=== PATIENT | male | born 1970 | race Caucasian/White ===

== ENCOUNTER 2021-05-09 18:39 | Inpatient (IN) ==
[2021-05-09] MEDS ORDERED: PANTOprazole 80 MG in DEXTROSE 5% 100 ML IV ONE (19:28)
[2021-05-09] MEDS ORDERED: PANTOPRAZOLE BOLUS/DRIP 1 EA IV STA (19:28)
[2021-05-09] MEDS ORDERED: ONDANSETRON INJ 2 MG/ML 2 ML VIAL IV STA ×2 (19:40→21:23)
[2021-05-09] MEDS ORDERED: MoRPHine SULFATE 4 MG/ML 1 ML CARP\\VIAL IV STA ×2 (19:40→21:23)
--- NOTE | 2021-05-09 19:40 | Emergency Department Note ---
Impression & Plan Abdominal pain, Acute upper gastrointestinal bleeding, Anemia ED Provider Note NAME: ARNULFO ABREU AGE: 51 SEX: M : 1970 ARRIVES VIA: Walk-In INFORMANT: Patient ED PROVIDER(S): Elías Mdoi DO CHIEF COMPLAINT: abdominal pain HPI: Patient is a 51-year-old male with a past medical history of gastric ulcers who presents the ER for abdominal pain which has been present for the past 2 weeks. He admits to nausea but no vomiting. Denies any dysuria, urgency, or frequency. Black stools have been present with dark blood for the past week. Admits to weakness. No lightheadedness. No other exacerbating or remitting factors. Denies any blood thinners. Pain is an 8 out of 10 and constant. No chest pain or shortness of breath. Patient denies any NSAIDs or steroid use. Denies any history of varices or alcohol abuse. ROS: See above HPI for pertinent positives & negatives. A total of 10 systems reviewed and were otherwise negative. PAST MEDICAL HISTORY:See Below PAST SURGICAL HISTORY:See Below FAMILY HISTORY:See Below SOCIAL HISTORY:See Below HOME MEDICATIONS:See Below ALLERGIES:See Below VITALS:See Below PHYSICAL EXAMINATION: GENERAL: Sitting up in bed, alert, well appearing, well nourished, no distress, non-toxic EYE EXAM: normal conjunctiva. PERRL and EOM's grossly intact. OROPHARYNX: no exudate, no erythema, lips, buccal mucosa, and tongue normal and mucous membranes are moist NECK: supple, no nuchal rigidity, no adenopathy, non-tender LUNGS: Clear to auscultation. Normal chest wall mechanics HEART: no murmurs, S1 normal and S2 normal ABDOMEN: abdomen soft, non-tender, normo-active bowel sounds, no masses, no rebound or guarding. RECTAL: Dark stool heme positive UPPER EXTREMITIES: upper extremities are grossly normal. LOWER EXTREMITIES: No pitting edema. NEURO EXAM: Normal sensorium, cranial nerves II-XII grossly intact, normal speech, no gross weakness of arms, no gross weakness of legs. MEDICAL DECISION MAKING: Patient is a 51-year-old male who presents the ER for dark tarry stools which is been present for the past week. Rectally was heme positive black stool. Labs show no significant leukocytosis. Mild anemia 11.4 down from a previous of 15 although that was back in early 1999. Patient does not have a PCP. BMP with slightly elevated chloride. LFTs bilirubin was unremarkable. Lipase was normal. UA was clean. CT abdomen pelvis was unremarkable. Is placed on Protonix drip and bolus. He was given a GI cocktail. He was given IV narcotics. He was updated bedside and discussed with hospitalist for further evaluation. Triage Nursing notes reviewed. Limited review of prior medical records performed Vital Signs: reviewed and remarkable for HTN Differential diagnosis: Differential diagnoses includes but is not limited to gastritis, peptic ulcer disease, GERD, gallbladder disease, pancreatitis, small bowel obstruction, acute coronary syndrome, pericarditis, ischemic bowel, irritable bowel disease, irritable bowel syndrome, appendicitis, diverticulitis, malignancy, hernia, urinary tract infection, torsion, [/ectopic (if female)], perforation, trauma, infectious. ER treatment provided: See below Diagnostics interpreted by me: ECG: none Cardiac Monitoring: An order was placed for continuous cardiac monitoring. The monitor shows a rate of 72 with sinus rhythm. Laboratory studies: As stated above and show below. Imaging studies: CT abdomen pelvis showed no acute pathology per stat read Consultation(s): Discussed with Elver Reagan for further evaluation Procedures: none Critical Care: None Past Med/Surg History Social History Smoking Status: Current every day smoker Preferred Language: Swazi Feels Safe at Home: Yes Allergies Allergies Allergy/AdvReac Type Severity Reaction Status Date / Time aspirin Allergy Intermediate Throat Unverified 05/09/21 20:14 Swells amoxicillin AdvReac Intermediate Severe GI Unverified 05/09/21 20:14 Upset and Stomach Cramps azithromycin AdvReac Intermediate Severe GI Unverified 05/09/21 20:20 Upset Penicillins AdvReac Intermediate Severe GI Unverified 05/09/21 20:14 Upset and Stomach Cramps Home Meds Home Medications Medication Instructions Recorded Confirmed oxycodone-acetaminophen 1 tab PO Q6H PRN 05/09/21 05/09/21 Results & Data (ED) Vital Signs Vital Signs - 24 hr 05/09/21 18:50 05/09/21 20:00 05/09/21 20:29 Temperature 36.9 C 37.1 C Temperature Source Temporal Artery Scan Oral Pulse Rate 87 81 Pulse Rate [Apical] 77 Pulse Rate from SpO2 Sensor Pulse Rhythm [Apical] Regular Pulse Strength [Apical] Normal Respiratory Rate 18 16 15 Respiratory Effort / Characteristics Non-Labored Respiratory Depth Normal Blood Pressure 150/95 H 138/85 Blood Pressure [Left Arm] 134/75 Blood Pressure Mean 113 102 Blood Pressure Mean [Left Arm] 94 Blood Pressure Position Sitting Blood Pressure Position [Left Arm] Sitting Pulse Oximetry 98 99 Oxygen Delivery Method Room Air Room Air Sepsis Recent Fever Within 48 Hours No Sepsis New/Unexplained Change in Mental Status No Sepsis Action Taken by Nursing No Action Required 05/09/21 21:07 05/09/21 21:10 05/09/21 21:20 Temperature Temperature Source Pulse Rate 78 82 69 Pulse Rate [Apical] Pulse Rate from SpO2 Sensor 80 84 69 Pulse Rhythm [Apical] Pulse Strength [Apical] Respiratory Rate 17 18 14 Respiratory Effort / Characteristics Respiratory Depth Blood Pressure 134/75 Blood Pressure [Left Arm] Blood Pressure Mean 94 Blood Pressure Mean [Left Arm] Blood Pressure Position Blood Pressure Position [Left Arm] Pulse Oximetry 97 98 98 Oxygen Delivery Method Sepsis Recent Fever Within 48 Hours Sepsis New/Unexplained Change in Mental Status Sepsis Action Taken by Nursing 05/09/21 21:30 05/09/21 21:40 05/09/21 21:41 Temperature Temperature Source Pulse Rate 74 66 68 Pulse Rate [Apical] Pulse Rate from SpO2 Sensor 73 66 68 Pulse Rhythm [Apical] Pulse Strength [Apical] Respiratory Rate 18 19 16 Respiratory Effort / Characteristics Respiratory Depth Blood Pressure 142/83 H Blood Pressure [Left Arm] Blood Pressure Mean 102 Blood Pressure Mean [Left Arm] Blood Pressure Position Blood Pressure Position [Left Arm] Pulse Oximetry 96 97 97 Oxygen Delivery Method Sepsis Recent Fever Within 48 Hours Sepsis New/Unexplained Change in Mental Status Sepsis Action Taken by Nursing 05/09/21 21:50 05/09/21 22:00 Temperature Temperature Source Pulse Rate 69 70 Pulse Rate [Apical] Pulse Rate from SpO2 Sensor 71 70 Pulse Rhythm [Apical] Pulse Strength [Apical] Respiratory Rate 16 13 Respiratory Effort / Characteristics Respiratory Depth Blood Pressure Blood Pressure [Left Arm] Blood Pressure Mean Blood Pressure Mean [Left Arm] Blood Pressure Position Blood Pressure Position [Left Arm] Pulse Oximetry 96 95 Oxygen Delivery Method Sepsis Recent Fever Within 48 Hours Sepsis New/Unexplained Change in Mental Status Sepsis Action Taken by Nursing Laboratory Data Result diagrams: 05/09/21 19:36 05/09/21 19:36 Lab Results 05/09/21 05/09/21 05/09/21 Range/Units 19:36 19:36 19:36 WBC 10.98 H (4.8-10.8) K/uL RBC 3.72 L (4.7-6.1) M/uL Hgb 11.4 L (14.0-18.0) g/dL Hct 32.4 L (42-52) % MCV 87.1 (80-100) fL MCH 30.6 (25-34) pg MCHC 35.2 (32-36) g/dL RDW Std Deviation 41.5 (36.4-46.3) fL RDW Coeff of Perri 13.1 (11.5-14.5) % Plt Count 237 (130-400) K/uL MPV 10.2 (7.4-10.4) fL Immature Gran % (Auto) 1.5 % Neut % (Auto) 60.7 % Lymph % (Auto) 28.7 % [place] % (Auto) 4.6 % Eos % (Auto) 3.7 % Baso % (Auto) 0.8 % Neut # (Auto) 6.66 H (1.4-6.5) K/uL Lymph # (Auto) 3.15 (1.2-3.4) K/uL [place] # (Auto) 0.50 (0.11-0.59) K/uL Eos # (Auto) 0.41 (0-0.5) K/uL Baso # (Auto) 0.09 (0-0.2) K/uL Immature Gran # (Auto) 0.17 H (0.00-0.02) K/uL Sodium 140 (136-145) mmol/L Potassium 4.2 (3.5-5.1) mmol/L Chloride 111 H (98-107) mmol/L Carbon Dioxide 26 (21-32) mmol/L Anion Gap 3.0 (3-11) BUN 18 (7-18) mg/dl Creatinine 0.86 (0.6-1.4) mg/dl Est Cr Clr Drug Dosing 109.2 ml/min Est GFR ( Amer) 118.0 ml/min Est GFR (Non-Af Amer) 101.8 ml/min BUN/Creatinine Ratio 20.7 H (10-20) Glucose 91 (70-99) mg/dl Calcium 8.0 L (8.5-10.1) mg/dl Total Bilirubin 0.2 (0.2-1) mg/dl AST 16 (15-37) U/L ALT 21 (12-78) U/L Alkaline Phosphatase 86 (45-117) U/L Total Protein 6.8 (6.4-8.2) gm/dl Albumin 3.0 L (3.4-5.0) gm/dl Globulin 3.8 (2.5-4.0) gm/dl Albumin/Globulin Ratio 0.8 L (0.9-2) Lipase 174 (73-393) U/L Specimen Hemolysis Urine Color Yellow Urine Appearance Clear (Clear) Urine pH 6.0 (4.5-7.5) Ur Specific [place] > 1.045 H (1.000-1.030) Urine Protein Negative (Negative) Urine Glucose (UA) Negative (Negative) Urine Ketones Negative (Negative) Urine Blood Negative (Negative) Urine Nitrite Negative (Negative) Urine Bilirubin Negative (Negative) Urine Urobilinogen Negative (Negative) Ur Leukocyte Esterase Negative (Negative) COVID-19 Eval Order SARS-CoV-2 (PCR) (Negative) 05/09/21 05/09/21 Range/Units 21:44 21:44 WBC (4.8-10.8) K/uL RBC (4.7-6.1) M/uL Hgb (14.0-18.0) g/dL Hct (42-52) % MCV (80-100) fL MCH (25-34) pg MCHC (32-36) g/dL RDW Std Deviation (36.4-46.3) fL RDW Coeff of Perri (11.5-14.5) % Plt Count (130-400) K/uL MPV (7.4-10.4) fL Immature Gran % (Auto) % Neut % (Auto) % Lymph % (Auto) % [place] % (Auto) % Eos % (Auto) % Baso % (Auto) % Neut # (Auto) (1.4-6.5) K/uL Lymph # (Auto) (1.2-3.4) K/uL [place] # (Auto) (0.11-0.59) K/uL Eos # (Auto) (0-0.5) K/uL Baso # (Auto) (0-0.2) K/uL Immature Gran # (Auto) (0.00-0.02) K/uL Sodium (136-145) mmol/L Potassium (3.5-5.1) mmol/L Chloride (98-107) mmol/L Carbon Dioxide (21-32) mmol/L Anion Gap (3-11) BUN (7-18) mg/dl Creatinine (0.6-1.4) mg/dl Est Cr Clr Drug Dosing ml/min Est GFR ( Amer) ml/min Est GFR (Non-Af Amer) ml/min BUN/Creatinine Ratio (10-20) Glucose (70-99) mg/dl Calcium (8.5-10.1) mg/dl Total Bilirubin (0.2-1) mg/dl AST (15-37) U/L ALT (12-78) U/L Alkaline Phosphatase (45-117) U/L Total Protein (6.4-8.2) gm/dl Albumin (3.4-5.0) gm/dl Globulin (2.5-4.0) gm/dl Albumin/Globulin Ratio (0.9-2) Lipase (73-393) U/L Specimen Hemolysis Urine Color Urine Appearance (Clear) Urine pH (4.5-7.5) Ur Specific [place] (1.000-1.030) Urine Protein (Negative) Urine Glucose (UA) (Negative) Urine Ketones (Negative) Urine Blood (Negative) Urine Nitrite (Negative) Urine Bilirubin (Negative) Urine Urobilinogen (Negative) Ur Leukocyte Esterase (Negative) COVID-19 Eval Order Covid19 at [facility] SARS-CoV-2 (PCR) NEGATIVE (Negative) Administered Medications Pantoprazole Sodium 40 mg/ (Dextrose) 100 mls @ 20 mls/hr IV Q5H [facility] Stop: 06/08/21 19:43 Last Admin: 05/09/21 20:28 Dose: 8 mg/hr, 20 mls/hr Documented by: [id number] Discontinued Medications Al Hydrox/Mg Hydrox/Simethicone (Gi Cocktail Ed Use) 1 dose PO ONE ONE Stop: 05/09/21 21:24 Last Admin: 05/09/21 21:48 Dose: 1 dose Documented by: [id number] Pantoprazole Sodium (Protonix Bolus/Drip) 0 mls @ 1 mls/hr IV ONE STA Stop: 05/09/21 19:29 Last Admin: 05/09/21 20:44 Dose: Not Given Documented by: [id number] Pantoprazole Sodium 80 mg/ (Dextrose) 120 mls @ 400 mls/hr IV NOW ONE Stop: 05/09/21 19:45 Last Infusion: 05/09/21 20:32 Dose: 0 mls/hr Documented by: [id number] Admin: 05/09/21 20:03 Dose: 400 mls/hr Documented by: [id number] Ioversol (Optiray 320 100ml) 95 ml IV ONCE ONE Stop: 05/09/21 21:00 Last Admin: 05/09/21 21:00 Dose: 95 ml Documented by: [id number] Morphine Sulfate (Morphine Sulfate 4 Mg/Ml 1 Ml Carp\Vial) 4 mg IV NOW STA Stop: 05/09/21 19:41 Last Admin: 05/09/21 20:37 Dose: 4 mg Documented by: [id number] Morphine Sulfate (Morphine Sulfate 4 Mg/Ml 1 Ml Carp\Vial) 4 mg IV NOW STA Stop: 05/09/21 21:24 Last Admin: 05/09/21 21:41 Dose: 4 mg Documented by: [id number] Ondansetron HCl (Ondansetron Inj 2 Mg/Ml 2 Ml Vial) 4 mg IV NOW STA Stop: 05/09/21 19:41 Last Admin: 05/09/21 20:11 Dose: 4 mg Documented by: [id number] Ondansetron HCl (Ondansetron Inj 2 Mg/Ml 2 Ml Vial) 4 mg IV NOW STA Stop: 05/09/21 21:24 Last Admin: 05/09/21 22:09 Dose: 4 mg Documented by: [id number] Discharge Plan Visit Data Chief Complaint: Abdominal Pain Stated Complaint: ABDOMINAL PAIN ED Provider: Elías Modi Discharge Problem: Abdominal pain, Acute upper gastrointestinal bleeding, Anemia Forms Stand Alone Forms: Picket Prescriptions Prescriptions: No Action oxycodone-acetaminophen 5-325 mg tablet 1 tab PO Q6H PRN (Reason: Pain) RF: 0 Discharge Problem: Abdominal pain Qualifiers: Abdominal location: unspecified location Qualified Code(s): R10.9 - Unspecified abdominal pain Anemia Qualifiers: Anemia type: unspecified type Qualified Code(s): D64.9 - Anemia, unspecified
[2021-05-09 19:57] LABS: Basophils # (auto) 0.09 K/uL (0-0.2); Basophils % (auto) 0.8 %; Eosinophils # (auto) 0.41 K/uL (0-0.5); Eosinophils % (auto) 3.7 %; Hematocrit (blood only) 32.4 % (42-52); Hemoglobin 11.4 g/dL (14.0-18.0); Immature Granulocytes # (auto) 0.17 K/uL (0.00-0.02); Immature Granulocytes % (auto) 1.5 %; Lymphocytes # (auto) 3.15 K/uL (1.2-3.4); Lymphocytes % (auto) 28.7 %; Mean Corpuscular Hemoglobin 30.6 pg (25-34); Mean Corpuscular Hgb Conc 35.2 g/dL (32-36); Mean Corpuscular Volume 87.1 fL (80-100); Mean Platelet Volume 10.2 fL (7.4-10.4); Monocytes % (auto) 4.6 %; Neutrophils # (auto) 6.66 K/uL (1.4-6.5); Neutrophils % (auto) 60.7 %; Platelet Count 237 K/uL (130-400); RDW Coefficient of Variation 13.1 % (11.5-14.5); RDW Standard Deviation 41.5 fL (36.4-46.3); Red Blood Count 3.72 M/uL (4.7-6.1); White Blood Count 10.98 K/uL (4.8-10.8)
[2021-05-09 20:27] LABS: BUN Creatinine Ratio 20.7 (10-20); Creatinine Clr Calc Pharmacy 109.2 ml/min; Est GFR (Non-African American) 101.8 ml/min; Potassium 4.2 mmol/L (3.5-5.1)
[2021-05-09 20:28] LABS: Albumin Globulin Ratio 0.8 (0.9-2); Bilirubin,Total 0.2 mg/dl (0.2-1); Globulin 3.8 gm/dl (2.5-4.0); Total Protein 6.8 gm/dl (6.4-8.2)
[2021-05-09] MEDS: PANTOprazole 40 MG in DEXTROSE 5% 100 ML IV SCH (20:28)
[2021-05-09] MEDS ORDERED: OPTIRAY 320 100ml IV ONE (20:59)
[2021-05-09] MEDS ORDERED: GI COCKTAIL ED USE PO ONE (21:23)
[2021-05-09 21:30] LABS: Appearance Urine Clear (Clear); Bilirubin Urine Negative (Negative); Blood Urine Negative (Negative); Color Urine Yellow; Glucose Urine UA Negative (Negative); Ketones Urine Negative (Negative); Leukocyte Esterase Urine Negative (Negative); Nitrite Urine Negative (Negative); Protein Urine Negative (Negative); Specific Gravity Urine > 1.045 (1.000-1.030); Urobilinogen Urine Negative (Negative)
[2021-05-10] MEDS: PANTOprazole 40 MG in DEXTROSE 5% 100 ML IV SCH ×3 (00:53→10:29)
[2021-05-10] MEDS ORDERED: ONDANSETRON INJ 2 MG/ML 2 ML VIAL IV PRN ×2 (01:38→11:21)
--- NOTE | 2021-05-10 01:41 | History & Physical Report ---
Date of Service May 10, 2021 Assessment & Plan (1) Acute upper gastrointestinal bleeding: See below Present on Admission?: Yes (2) Symptomatic anemia: Symptomatic anemia/GI bleeding- Patient reports stools are mildly tarry, but then adds that there is some red blood tingeing to it as well. Symptoms sound more related to upper GI bleed, which will be assessed by EGD, but also may require colonoscopy due to complaint of spotty bright red blood in stool Hemoglobin was 11.4 upon admission, with previous baseline in 2019 at 15.2 Mucous membranes are dry, so suspect that his hemoglobin is actually somewhere in the upper 9 to low 10 range. H&H every 6 hours NPO NSS + KCl 20 mEq at 100 mils per hour Continue Protonix drip begun in the ED Zofran 4 mg IV every 6 hours as needed Ceftriaxone 1 g IV daily Patient of note also drinks 32 to 48 ounces of Pepsi daily. He does take NSAIDs, but denies any use of NSAIDs for at least a week prior to the onset of his stool changes 2 weeks ago. Patient denies alcohol use Consult gastroenterology Dr. Whitley Present on Admission?: Yes (3) Abdominal pain: Patient did undergo CT of abdomen and pelvis with contrast, which showed no acute findings, other than pars defects at L5 Present on Admission?: Yes (4) Dental infection: The patient has recently been taking Percocet, and has recently been on clarithromycin Present on Admission?: Yes Admission and Anticipated Discharge Date Admission Date: May 10, 2021 History of Present Illness Chief Complaint: The patient presents to the emergency department with complaint of 2 weeks of epigastric abdominal pain, with initial notation of dark tarry stools that began 2 weeks ago, and more recently noted spotty areas of bright red blood in stool Primary Care Provider: NO PCP The patient is a 51-year-old male with a reported past medical history including gastric ulcers, who presents as above. He denies any recent NSAID use, but has used ibuprofen or naproxen in the past for generalized pains. He has felt lightheaded and dizzy intermittently, worsening over the past few days. He denies taking any herbal remedies. He has been taking Percocet for a recent dental infection, and had the addition of clarithromycin recently as well. He denies use of any other atao-uey-xusomnn agents. The only reason he presented to the ED tonight, was at the insistence of his significant other, whom whom he notified of his symptoms recently Allergies Allergy/AdvReac Type Severity Reaction Status Date / Time aspirin Allergy Intermediate Throat Unverified 05/09/21 20:14 Swells amoxicillin AdvReac Intermediate Severe GI Unverified 05/09/21 20:14 Upset and Stomach Cramps azithromycin AdvReac Intermediate Severe GI Unverified 05/09/21 20:20 Upset Penicillins AdvReac Intermediate Severe GI Unverified 05/09/21 20:14 Upset and Stomach Cramps Home Medications Medication Instructions Recorded Confirmed Type oxycodone-acetaminophen 1 tab PO Q6H PRN 05/09/21 05/09/21 History Past Med/Surg History Social History Smoking Status: Current some day smoker Second Hand Exposure: No; Do You Dip or Chew Tobacco: No; Hx Alcohol Use: No Hx Substance Use: No Preferred Language: Urdu Director [employer] Required: No Beliefs That Will Affect Care: None Current Living Situation: Significant Other Feels Safe at Home: Yes Safety Concerns: Feels Safe At This Time Assistive Devices: None Review of Systems Review of Systems: The patient denies chest pain, palpitations, shortness of breath, dyspnea on exertion, cough, lower extremity swelling, sore throat, fevers, chills, sweats, nausea, vomiting, diarrhea , constipation, blood in urine, dysuria, urinary frequency or urgency, memory loss, loss of consciousness, rash, abnormal bruising or bleeding, imbalance, focal or generalized weakness, numbness or tingling in arms or legs, generalized arthralgias or myalgias, back or neck pain, or night sweats. The review of systems is otherwise negative other than for that already noted above, and at least 10 systems have been reviewed. Physical Exam Physical Exam: The patient is awake, alert and oriented 3, well developed and well nourished, normocephalic and atraumatic, lying in bed and in no acute distress. HEENT--PERRL, EOMI, mucous membranes and oropharynx dry. Neck--supple. No JVD. No bruits. Thyroid normal, trachea midline, no adenopathy. Heart--normal S1 and S2. No murmurs, rubs or gallops. Lungs--clear bilaterally, no respiratory distress, no accessory muscle use. Abdomen--normal bowel sounds and soft. Mild epigastric tenderness. N ondistended. Mildly obese. Extremities--no cyanosis or clubbing. No edema. Dermatologic--normal skin turgor, normal color, no abnormal lymph nodes, no rash. Neurologic--cranial nerves II through XII grossly intact. Rheumatologic--normal range of motion. Psychiatric--normal affect. Results & Data Results & Data ([facility]) Vital Signs (Past 12 Hours) Vital Signs Temp Pulse Pulse Resp BP BP Pulse Ox 05/10/21 01:00 56 L 14 105/72 97 05/10/21 00:01 72 19 97 05/10/21 00:00 69 20 136/79 98 05/09/21 23:29 70 15 114/74 97 05/09/21 23:00 68 17 97 05/09/21 22:00 70 13 95 05/09/21 21:50 69 16 96 05/09/21 21:41 68 16 142/83 H 97 05/09/21 21:40 66 19 97 05/09/21 21:30 74 18 96 05/09/21 21:20 69 14 98 05/09/21 21:10 82 18 98 05/09/21 21:07 78 17 134/75 97 05/09/21 20:29 81 15 138/85 05/09/21 20:00 98.8 F 77 16 134/75 99 05/09/21 18:50 98.4 F 87 18 150/95 H 98 Laboratory Results Laboratory Results WBC 10.98 K/uL (4.8-10.8) H 05/09/21 19:36 RBC 3.72 M/uL (4.7-6.1) L 05/09/21 19:36 Hgb 10.9 g/dL (14.0-18.0) L 05/10/21 02:00 Hct 31.1 % (42-52) L 05/10/21 02:00 MCV 87.1 fL (80-100) 05/09/21 19:36 MCH 30.6 pg (25-34) 05/09/21 19:36 MCHC 35.2 g/dL (32-36) 05/09/21 19:36 RDW Std Deviation 41.5 fL (36.4-46.3) 05/09/21 19:36 RDW Coeff of Perri 13.1 % (11.5-14.5) 05/09/21 19:36 Plt Count 237 K/uL (130-400) 05/09/21 19:36 MPV 10.2 fL (7.4-10.4) 05/09/21 19:36 Immature Gran % (Auto) 1.5 % 05/09/21 19:36 Neut % (Auto) 60.7 % 05/09/21 19:36 Lymph % (Auto) 28.7 % 05/09/21 19:36 [place] % (Auto) 4.6 % 05/09/21 19:36 Eos % (Auto) 3.7 % 05/09/21 19:36 Baso % (Auto) 0.8 % 05/09/21 19:36 Neut # (Auto) 6.66 K/uL (1.4-6.5) H 05/09/21 19:36 Lymph # (Auto) 3.15 K/uL (1.2-3.4) 05/09/21 19:36 [place] # (Auto) 0.50 K/uL (0.11-0.59) 05/09/21 19:36 Eos # (Auto) 0.41 K/uL (0-0.5) 05/09/21 19:36 Baso # (Auto) 0.09 K/uL (0-0.2) 05/09/21 19:36 Immature Gran # (Auto) 0.17 K/uL (0.00-0.02) H 05/09/21 19:36 Sodium 140 mmol/L (136-145) 05/09/21 19:36 Potassium 4.2 mmol/L (3.5-5.1) 05/09/21 19:36 Chloride 111 mmol/L (98-107) H 05/09/21 19:36 Carbon Dioxide 26 mmol/L (21-32) 05/09/21 19:36 Anion Gap 3.0 (3-11) 05/09/21 19:36 BUN 18 mg/dl (7-18) 05/09/21 19:36 Creatinine 0.86 mg/dl (0.6-1.4) 05/09/21 19:36 Est Cr Clr Drug Dosing 109.2 ml/min 05/09/21 19:36 Est GFR ( Amer) 118.0 ml/min 05/09/21 19:36 Est GFR (Non-Af Amer) 101.8 ml/min 05/09/21 19:36 BUN/Creatinine Ratio 20.7 (10-20) H 05/09/21 19:36 Glucose 91 mg/dl (70-99) 05/09/21 19:36 Calcium 8.0 mg/dl (8.5-10.1) L 05/09/21 19:36 Total Bilirubin 0.2 mg/dl (0.2-1) 05/09/21 19:36 AST 16 U/L (15-37) 05/09/21 19:36 ALT 21 U/L (12-78) 05/09/21 19:36 Alkaline Phosphatase 86 U/L (45-117) 05/09/21 19:36 Total Protein 6.8 gm/dl (6.4-8.2) 05/09/21 19:36 Albumin 3.0 gm/dl (3.4-5.0) L 05/09/21 19:36 Globulin 3.8 gm/dl (2.5-4.0) 05/09/21 19:36 Albumin/Globulin Ratio 0.8 (0.9-2) L 05/09/21 19:36 Lipase 174 U/L (73-393) 05/09/21 19:36 Specimen Hemolysis 05/09/21 19:36 Urine Color Yellow 05/09/21 19:36 Urine Appearance Clear (Clear) 05/09/21 19:36 Urine pH 6.0 (4.5-7.5) 05/09/21 19:36 Ur Specific [place] > 1.045 (1.000-1.030) H 05/09/21 19:36 Urine Protein Negative (Negative) 05/09/21 19:36 Urine Glucose (UA) Negative (Negative) 05/09/21 19:36 Urine Ketones Negative (Negative) 05/09/21 19:36 Urine Blood Negative (Negative) 05/09/21 19:36 Urine Nitrite Negative (Negative) 05/09/21 19:36 Urine Bilirubin Negative (Negative) 05/09/21 19:36 Urine Urobilinogen Negative (Negative) 05/09/21 19:36 Ur Leukocyte Esterase Negative (Negative) 05/09/21 19:36 COVID-19 Eval Order Covid19 at [facility] 05/09/21 21:44 SARS-CoV-2 (PCR) NEGATIVE (Negative) 05/09/21 21:44 Diagnostic Findings [facility] Patient: ARNULFO ABREU (Male) : 74 Status: ER Date: 05/09/21 21:06 Room #: History: abd pain dark stools with blood noted Slices: [id number] Priors: Tech: [place], Matt @ [phone] Exams: CT ABDOMEN & PELVIS With Contrast Contrast: IV Amt: 94 Accession Numbers: [id number] Preliminary Findings Only See Final Report For Complete Findings CT ABDOMEN & PELVIS With Contrast: No inflammatory changes along the GI tract or evidence of obstruction. The appendix is normal. No free fluid. The liver, gallbladder, pancreas, spleen, adrenal glands, kidneys, and reproductive organs are unremarkable. Pars defects at L5. Radiologist: Cosme Puente MD Study ready at 21:12 and initial results transmitted at 22:12 *This report constitutes a preliminary interpretation only. Non-acute findings felt to be unrelated to the clinical presentation may not be discussed in this report. The study will be interpreted and a final report will be generated by the local Radiologist the following shift. To reach the hospital radiology department call [phone]. If a discrepancy is found between the preliminary and final interpretations of this study, please notify us via our Client Portal at [email or web address] under QA Exams.You can also fax this report with a description of the discrepancy, or include the final report, to our daytime fax number [phone].If faxing, please indicate the severity of discrepancy using one of the following categories: [ ] 1 - Agree/Informational [ ] 2 - Unlikely to Affect Management [ ] 3 - Possible Eventual Change of Management [ ] 4 - Probable Immediate Change of Management For all other patient related information, please fax us at [phone]. [id number] Code Status & VTE Plan Code Status Full code VTE Prophylaxis Plan VTE Prophylaxis will be ordered: Yes PG Care Time/CCT Total # of Minutes Spent Total Time Spent with Patient: Total time spent is greater than 50% in coordination of care (as documented) at patient's floor/unit and/or counseling patient: Coding Level of Care Code 87026 Initial Inpt Care Lvl 3 Diagnoses Acute upper gastrointestinal bleeding K92.2 Symptomatic anemia D64.9 Abdominal pain R10.9 Abdominal location: unspecified location Dental infection K04.7 (1) Abdominal pain Abdominal location: unspecified location Qualified Code(s): R10.9 - Unspecified abdominal pain
[2021-05-10] MEDS ORDERED: ACETAMINOPHEN 1,000 MG/100 ML VIAL IV PRN (01:50)
[2021-05-10] MEDS ORDERED: cefTRIAXone SODIUM 2,000 MG in DEXTROSE 5% 50 ML IV SCH (02:00)
[2021-05-10] MEDS: NSS + 20MEQ KCL 20 MEQ/1,000 ML BAG IV SCH ×2 (02:11→11:07)
[2021-05-10 02:13] LABS: Hematocrit (blood only) 31.1 % (42-52); Hemoglobin 10.9 g/dL (14.0-18.0)
[2021-05-10] MEDS ORDERED: MoRPHine SULFATE 4 MG/ML 1 ML CARP\\VIAL IV STA (04:37)
--- NOTE | 2021-05-10 07:03 | CT Scan Report ---
CT abd pelvis IV con only CLINICAL HISTORY: Abdominal pain and black stools COMPARISON STUDY: None. TECHNIQUE: The patient was scanned in a dynamic helical fashion during intravenous administration of 95 cc of Optiray 320 A dose lowering technique was utilized adhering to the principles of ALARA. CT DOSE: 736.12 mGy.cm FINDINGS: Lower chest: There are mild dependent atelectatic changes. Small hiatal hernia Liver: The contrast-enhanced liver is normal in size, contour, and attenuation. There is no intrahepa tic biliary ductal dilatation. The hepatic veins and portal veins are patent. Gallbladder: Unremarkable. Spleen: Normal in size and attenuation. Pancreas: Unremarkable. Adrenal glands: Unremarkable. Kidneys: There is symmetric renal cortical enhancement. The kidneys are normal in size without hydron ephrosis. Bowel: There are no transition zones to indicate bowel obstruction. There is no evidence of acute div erticulitis. There is no evidence of acute appendicitis. Peritoneum: There is no intraperitoneal free air or abdominal ascites. There is a tiny fat-containing umbilical hernia Vasculature: The abdominal aorta is normal in course and caliber. Adenopathy: None. Pelvic viscera: The bladder, and pelvic viscera are unremarkable. Skeletal structures: No destructive osseous lesions are seen. There is bilateral L5 spondylolysis. Th ere is a grade 1 spondylolisthesis of L5 on S1. IMPRESSION: 1. No acute intra-abdominal or pelvic findings 2. No evidence of bowel obstruction. No evidence of free air 3. No evidence of acute appendicitis. No evidence of acute diverticulitis 4. No evidence of pathologic adenopathy ACT 112: Negative or not required by law. Electronically signed by: Jose Raul Waters M.D. 05/10/2021 7:01 AM
[2021-05-10 07:46] LABS: Hematocrit (blood only) 30.4 % (42-52); Hemoglobin 10.4 g/dL (14.0-18.0)
[2021-05-10 07:59] LABS: Partial Thromboplastin Ratio 0.9; Partial Thromboplastin Time 24.2 Seconds (21.0-31.0); Prothrombin Time 10.5 Seconds (9.0-12.0)
[2021-05-10 08:02] LABS: Albumin Level 2.7 gm/dl (3.4-5.0); BUN Creatinine Ratio 17.1 (10-20); Calcium 8.2 mg/dl (8.5-10.1); Creatinine Clr Calc Pharmacy 103.6 ml/min; Est GFR (African American) 115.8 ml/min; Est GFR (Non-African American) 99.9 ml/min; Magnesium 2.1 mg/dl (1.8-2.4); Potassium 3.8 mmol/L (3.5-5.1)
[2021-05-10 08:05] LABS: Albumin Globulin Ratio 0.8 (0.9-2); Bilirubin,Total 0.2 mg/dl (0.2-1); Globulin 3.2 gm/dl (2.5-4.0); Total Protein 5.9 gm/dl (6.4-8.2)
[2021-05-10] MEDS ORDERED: FAMOTIDINE 20 MG in SYRINGE 3 ML IV ONE (09:00)
[2021-05-10] MEDS: MoRPHine SULFATE 4 MG/ML 1 ML CARP\\VIAL IV PRN (09:01)
--- NOTE | 2021-05-10 10:18 | Anesthesiology Consultation ---
Date of Service May 10, 2021 Assessment & Plan Chart Review Chart Review: Acceptable Risk for Surgery and Patient NOT seen in Pre Admission Testing Consults Requested none ASA [id number] Proposed Anesthesia Anesthesia Type: General History Surgery Operation Date: 05/10/21 12:00 Proposed Procedures p Esophagogastroduodenoscopy - Cullen G. Case, DO Height/Weight Height: 5 ft 6 in Weight: 88.7 kg Allergies Allergy/AdvReac Type Severity Reaction Status Date / Time aspirin Allergy Intermediate Throat Unverified 05/09/21 20:14 Swells amoxicillin AdvReac Intermediate Severe GI Unverified 05/09/21 20:14 Upset and Stomach Cramps azithromycin AdvReac Intermediate Severe GI Unverified 05/09/21 20:20 Upset Penicillins AdvReac Intermediate Severe GI Unverified 05/09/21 20:14 Upset and Stomach Cramps Medications Home Medications Medication Instructions Recorded Confirmed Last Taken oxycodone-acetaminophen 1 tab PO Q6H PRN 05/09/21 05/09/21 Unknown Active Medications Generic Name Dose Route Start Last Admin Trade Name Freq PRN Reason Stop Dose Admin Pantoprazole Sodium 40 mg/ 100 mls @ 20 mls/hr 05/09/21 19:44 05/10/21 05:52 Dextrose IV 06/08/21 19:43 8 mg/hr Q5H GEM 20 mls/hr Administration 8 MG/HR Acetaminophen 1,000 mg in 100 mls @ 400 mls/hr 05/10/21 01:50 05/10/21 04:21 Ofirmev IV 05/13/21 01:49 Infused Q8H PRN Infusion Pain or Fever Potassium Chloride/Sodium Chloride 20 meq in 1,000 mls @ 100 mls/hr 05/10/21 01:50 05/10/21 02:11 Normal Saline W/20 Meq Kcl IV 06/09/21 01:49 100 mls/hr .Q10H GEM Administration Ceftriaxone Sodium 2,000 mg/ 70 mls @ 100 mls/hr 05/10/21 02:00 05/10/21 04:21 Dextrose IV 05/20/21 01:59 Infused Q24H GEM Infusion Protocol Morphine Sulfate 4 mg 05/10/21 08:02 05/10/21 09:01 Morphine Sulfate 4 Mg/Ml 1 Ml Carp\Vial IV 05/24/21 08:01 4 mg Q4 PRN Administration Pain Exercise / Class Metabolic Activity II 4-5 Yardwork/Stairs/Walk up hill Past Anesthesia History No Hx of Anesthesia Complications and No Family Hx of Anesthesia Complications History of PONV No Hx of PONV and No Hx of Motion Sickness Social History Smoking Status: Current some day smoker tobacco type: cigarettes Do You Dip or Chew Tobacco: No Hx Alcohol Use: No Hx Substance Use: No substance use type: does not use Physical Exam Vital Signs Last Vital Signs Temp 36.5 C 05/10/21 07:37 Pulse 60 05/10/21 08:47 Resp 18 05/10/21 07:37 BP 114/74 05/10/21 07:37 Pulse Ox 99 05/10/21 07:37 Testing Laboratory Results 05/10/21 07:19 05/10/21 07:19 PT 10.5 Seconds (9.0-12.0) 05/10/21 07:19 INR 1.0 (0.9-1.1) 05/10/21 07:19 APTT 24.2 Seconds (21.0-31.0) 05/10/21 07:19 Urine Color Yellow 05/09/21 19:36 Urine Appearance Clear (Clear) 05/09/21 19:36 Urine pH 6.0 (4.5-7.5) 05/09/21 19:36 Ur Specific Moon > 1.045 (1.000-1.030) H 05/09/21 19:36 Urine Protein Negative (Negative) 05/09/21 19:36 Urine Glucose (UA) Negative (Negative) 05/09/21 19:36 Urine Ketones Negative (Negative) 05/09/21 19:36 Urine Nitrite Negative (Negative) 05/09/21 19:36 Ur Leukocyte Esterase Negative (Negative) 05/09/21 19:36
--- NOTE | 2021-05-10 10:34 | Gastrointestinal Consultation ---
Date of Consultation May 10, 2021 Assessment & Plan (1) Symptomatic anemia: (2) Abdominal pain: (3) Acute upper gastrointestinal bleeding: Continue Protonix gtt at 8 mg/hour NPO Reglan 10 mg IV x1 now EGD today for further evaluation History of Present Illness Reason for Consultation: Acute blood loss anemia Attending Physician: Elías Garcia DO History of Present Illness Donta Little is a 51 yo CM who presented to the ER last night with complaints of mid-epigastric abdominal pain and melena. he states that he had been experiencing sharp stabbing, 8/10 abdominal pain for the past 2 weeks. He does admit to taking NSAID's in the past few weeks due to a dental infection. He states that he has also been having black stools and occasional bright red blood. He denies ever having undergone an EGD or colonoscopy previously. He was admitted, kept NPO, received IVF and a Protonix gtt. His H/H has decreased since admission and is 10.4/30.4 at present. He denies any fevers, chills, nausea, vomiting, hematemesis, jaundice, acholic stools, dark urine, pruritus or other complaints. Allergies Allergy/AdvReac Type Severity Reaction Status Date / Time aspirin Allergy Intermediate Throat Unverified 05/09/21 20:14 Swells amoxicillin AdvReac Intermediate Severe GI Unverified 05/09/21 20:14 Upset and Stomach Cramps azithromycin AdvReac Intermediate Severe GI Unverified 05/09/21 20:20 Upset Penicillins AdvReac Intermediate Severe GI Unverified 05/09/21 20:14 Upset and Stomach Cramps Home Medications Medication Instructions Recorded Confirmed Type oxycodone-acetaminophen 1 tab PO Q6H PRN 05/09/21 05/09/21 History Patient History Social History Smoking Status: Current some day smoker Second Hand Exposure: No; Do You Dip or Chew Tobacco: No; Hx Alcohol Use: No Hx Substance Use: No Preferred Language: [place] Maintenance Custodian Required: No Beliefs That Will Affect Care: None Current Living Situation: Significant Other Feels Safe at Home: Yes Safety Concerns: Feels Safe At This Time Assistive Devices: None Review of Systems Review of Systems: All systems reviewed & are unremarkable except as noted in HPI & below Physical Exam Constitutional: WD/WN, vitals as above Eyes: + anicteric sclerae ENMT: external ear and nose normal, oropharynx normal Neck: normal visual inspection Respiratory: normal respiratory effort; no respiratory distress and no labored breathing Cardiovascular: RRR, no murmur, no edema Gastrointestinal (Abdomen): Inspection/Auscultation: abdomen normal to inspection and normal bowel sounds; abdomen not distended Percussion/Palpation: + abdomen tender (Epigastric tenderness) and abdomen soft Skin: no rashes and no pallor Psychiatric: A+Ox3, euthymic affect Results & Data ([facility]) Vital Signs (Past 12 Hours) Vital Signs Temp Pulse Pulse Resp BP BP Pulse Ox 05/10/21 08:47 60 05/10/21 07:37 36.5 C 59 L 18 114/74 99 05/10/21 05:51 109/69 05/10/21 04:54 97/63 L 05/10/21 03:24 36.4 C L 57 L 18 104/66 97 05/10/21 02:42 96 H 05/10/21 01:39 36.6 C 61 20 137/79 98 05/10/21 01:38 36.6 C 61 18 137/79 98 05/10/21 01:00 56 L 14 105/72 97 05/10/21 00:01 72 19 97 05/10/21 00:00 69 20 136/79 98 05/09/21 23:29 70 15 114/74 97 05/09/21 23:00 68 17 97 PG Care Time/CCT Total # of Minutes Spent Total Time Spent with Patient: Total time spent is greater than 50% in coordination of care (as documented) at patient's floor/unit and/or counseling patient: Coding Level of Care Code 50372 Inpt Consult Level 3 Diagnoses Symptomatic anemia D64.9 Abdominal pain R10.9 Abdominal location: unspecified location Acute upper gastrointestinal bleeding K92.2 (1) Abdominal pain Abdominal location: unspecified location Qualified Code(s): R10.9 - Unspecified abdominal pain
[2021-05-10] MEDS ORDERED: METOCLOPRAMIDE HCL INJ 5 MG/ML 2 ML VIAL IV STA (10:36)
[2021-05-10] MEDS ORDERED: fentaNYL citrate 100 MCG/2 ML VIAL ONE (11:08)
[2021-05-10] MEDS ORDERED: MIDAZOLAM HCL 1 MG/ML 2ML VIAL ONE (11:08)
[2021-05-10] MEDS ORDERED: FLUMAZENIL 0.1 MG/1 ML 10 ML VIAL IV PRN (11:21)
[2021-05-10] MEDS ORDERED: PROMETHAZINE HCL 12.5 MG in SODIUM CHLORIDE 0.9% 50 ML IV PRN (11:21)
[2021-05-10] MEDS ORDERED: fentaNYL citrate 100 MCG/2 ML VIAL IV PRN (11:21)
[2021-05-10] MEDS ORDERED: NALOXONE HCL 0.4 MG/1 ML VIAL/CARP IV PRN (11:21)
[2021-05-10] MEDS ORDERED: LABETALOL HCL IV 5 MG/ML 20ML IV PRN (11:21)
[2021-05-10] MEDS ORDERED: ATROPINE SULFATE 0.1 MG/ML 10ML SYR IV PRN (11:21)
[2021-05-10] MEDS ORDERED: ePHEDrine sulfate 50 MG/ML AMP IV PRN (11:21)
--- NOTE | 2021-05-10 11:45 | GI REPORT ---
Patient Name: Donta Little Procedure Date: 05/10/2021 10:01 AM Date of : 1970 Admit Type: Inpatient Age: 51 Gender: Male Attending MD: Cullen Whitley DO Procedure: Upper GI endoscopy Providers: Cullen Whitley DO Referring MD: Elías Garcia Indications: Acute post hemorrhagic anemia Medicines: Monitored Anesthesia Care Complications: No immediate complications. Estimated Blood Loss: Estimated blood loss: none. Procedure: Pre-Anesthesia Assessment: - Prior to the procedure, a History and Physical was performed, and patient medications and allergies were reviewed. The patient's tolerance of previous anesthesia was also reviewed. The risks and benefits of the procedure and the sedation options and risks were discussed with the patient. All questions were answered, and informed consent was obtained. Prior Anticoagulants: The patient has taken no previous anticoagulant or antiplatelet agents. ASA Grade Assessment: E - Emergency. After reviewing the risks and benefits, the patient was deemed in satisfactory condition to undergo the procedure. After obtaining informed consent, the endoscope was passed under direct vision. Throughout the procedure, the patient's blood pressure, pulse, and oxygen saturations were monitored continuously. The Endoscope was introduced through the mouth, and advanced to the second part of duodenum. The upper GI endoscopy was accomplished without difficulty. The patient tolerated the procedure well. Findings: Moderately severe esophagitis with no bleeding was found. Localized moderate inflammation characterized by erosions and erythema was found in the gastric antrum. Biopsies were taken with a cold forceps for histology. One non-bleeding superficial duodenal ulcer with no stigmata of bleeding was found in the duodenal bulb. The lesion was 5 mm in largest dimension. Impression: - Moderately severe erosive esophagitis. - Gastritis. Biopsied. - Non-bleeding duodenal ulcer with no stigmata of bleeding. Recommendation: - Return patient to [facility] for ongoing care. - Advance diet as tolerated. - Use Protonix (pantoprazole) 40 mg PO BID. - Return to GI office in 6 weeks. Cullen Whitley DO 05/10/2021 11:44:39 AM This report has been signed electronically. Note Initiated On: 05/10/2021 10:01 AM Number of Addenda: 0 I attest to the content of the Intraoperative Record and orders documented therein, exceptions below {[id number]}
[2021-05-10] MEDS ORDERED: ePHEDrine sulfate 50 MG/ML SYR ONE (12:02)
[2021-05-10] MEDS ORDERED: LIDOCAINE 2% 2 ML VIAL/AMP(20MG/ML) INFIL ONE (12:02)
[2021-05-10] MEDS ORDERED: DEXAMETHASONE SOD INJ 4 MG/ML VIAL ONE (12:02)
[2021-05-10] MEDS ORDERED: PROPOFOL IV EMULSION 10 MG/ML 20 ML VIAL IV ONE (12:02)
[2021-05-10] MEDS ORDERED: ONDANSETRON INJ 2 MG/ML 2 ML VIAL ONE (12:02)
[2021-05-10] MEDS ORDERED: SUCCINYLCHOLINE CHLORIDE 20 MG/ML 10 ML VIAL IV ONE (12:02)
--- NOTE | 2021-05-10 12:31 | Anesthesiology Progress Note ---
Date of Service May 10, 2021 Anesthesia Post Procedure Vital Signs Vital Signs: Temp Pulse Pulse Resp BP BP Pulse Ox 05/10/21 12:20 69 14 115/61 95 05/10/21 12:10 77 14 112/58 L 98 05/10/21 12:00 80 14 112/63 98 05/10/21 11:57 36.2 C L 83 15 114/61 100 05/10/21 11:52 36.8 C 56 L 20 121/73 97 05/10/21 08:47 60 05/10/21 07:37 36.5 C 59 L 18 114/74 99 05/10/21 05:51 109/69 05/10/21 04:54 97/63 L 05/10/21 03:24 36.4 C L 57 L 18 104/66 97 05/10/21 02:42 96 H 05/10/21 01:39 36.6 C 61 20 137/79 98 05/10/21 01:38 36.6 C 61 18 137/79 98 05/10/21 01:00 56 L 14 105/72 97 05/10/21 00:01 72 19 97 05/10/21 00:00 69 20 136/79 98 05/09/21 23:29 70 15 114/74 97 05/09/21 23:00 68 17 97 05/09/21 22:00 70 13 95 05/09/21 21:50 69 16 96 05/09/21 21:41 68 16 142/83 H 97 05/09/21 21:40 66 19 97 05/09/21 21:30 74 18 96 05/09/21 21:20 69 14 98 05/09/21 21:10 82 18 98 05/09/21 21:07 78 17 134/75 97 05/09/21 20:29 81 15 138/85 05/09/21 20:00 37.1 C 77 16 134/75 99 05/09/21 18:50 36.9 C 87 18 150/95 H 98 Pain Intensity Upper Abdomen: Pain Intensity: 7 Transfer of Care Handoff Completed per policy Notes Mental Status: alert / awake / arousable Patient Amnestic to Procedure: Yes Nausea / Vomiting: adequately controlled Pain: adequately controlled Airway Patency, RR, SpO2: stable & adequate BP & HR: stable & adequate Hydration State: stable & adequate Anesthetic Complications: no major complications apparent
[2021-05-10] MEDS: PANTOprazole 40 MG TAB PO SCH ×2 (12:49→20:39)
--- NOTE | 2021-05-10 16:13 | Hospitalist Progress Note ---
Date of Service May 10, 2021 Assessment & Plan (1) Acute upper gastrointestinal bleeding: Appearing to be from gastritis and duodenal ulcer. Off NSAIDs, on PPI. Advance diet, supportive care. (2) Symptomatic anemia: Fortunately bleeding seems to have stopped. Continue to follow/CBC in the a.m. Admission and Anticipated Discharge Date Admission Date: May 10, 2021 Subjective Seen in follow-up from [employer] admission, and after EGD. Patient feeling okay, still just very groggy from the scope. Physical Exam Physical Exam: No distress, no pallor or icterus, breathing unlabored. No focal neuro deficits. Results & Data Results & Data ([facility]) Vital Signs (Past 12 Hours) Vital Signs Temp Pulse Pulse Resp BP Pulse Ox 05/10/21 16:00 80 05/10/21 15:55 98.6 F 68 18 121/73 98 05/10/21 12:47 97.9 F 85 20 106/66 93 05/10/21 12:30 97.5 F L 68 14 110/61 94 05/10/21 12:20 69 14 115/61 95 05/10/21 12:10 77 14 112/58 L 98 05/10/21 12:00 80 14 112/63 98 05/10/21 11:57 97.2 F L 83 15 114/61 100 05/10/21 11:52 98.2 F 56 L 20 121/73 97 05/10/21 08:47 60 05/10/21 07:37 97.7 F 59 L 18 114/74 99 05/10/21 05:51 109/69 05/10/21 04:54 97/63 L PG Care Time/CCT Total # of Minutes Spent Total Time Spent with Patient: Total time spent is greater than 50% in coordination of care (as documented) at patient's floor/unit and/or counseling patient: Coding Level of Care Code None Diagnoses Acute upper gastrointestinal bleeding K92.2 Symptomatic anemia D64.9
[2021-05-11 06:47] LABS: Basophils # (auto) 0.02 K/uL (0-0.2); Basophils % (auto) 0.1 %; Eosinophils # (auto) 0.01 K/uL (0-0.5); Eosinophils % (auto) 0.1 %; Hematocrit (blood only) 27.5 % (42-52); Hemoglobin 9.6 g/dL (14.0-18.0); Immature Granulocytes # (auto) 0.12 K/uL (0.00-0.02); Immature Granulocytes % (auto) 0.8 %; Lymphocytes # (auto) 1.46 K/uL (1.2-3.4); Lymphocytes % (auto) 10.2 %; Mean Corpuscular Hemoglobin 30.2 pg (25-34); Mean Corpuscular Hgb Conc 34.9 g/dL (32-36); Mean Corpuscular Volume 86.5 fL (80-100); Mean Platelet Volume 9.9 fL (7.4-10.4); Monocytes # (auto) 0.65 K/uL (0.11-0.59); Monocytes % (auto) 4.6 %; Neutrophils # (auto) 12.01 K/uL (1.4-6.5); Neutrophils % (auto) 84.2 %; Platelet Count 236 K/uL (130-400); RDW Coefficient of Variation 12.9 % (11.5-14.5); Red Blood Count 3.18 M/uL (4.7-6.1); White Blood Count 14.27 K/uL (4.8-10.8)
[2021-05-11 07:05] LABS: BUN Creatinine Ratio 13.8 (10-20); Calcium 8.5 mg/dl (8.5-10.1); Creatinine Clr Calc Pharmacy 97.8 ml/min; Est GFR (African American) 107.1 ml/min; Est GFR (Non-African American) 92.4 ml/min
[2021-05-11] MEDS: MoRPHine SULFATE 4 MG/ML 1 ML CARP\\VIAL IV PRN (07:41)
--- NOTE | 2021-05-11 08:45 | Gastroenterology Progress Note ---
Date of Service May 11, 2021 Assessment & Plan (1) Abdominal pain: (2) Symptomatic anemia: (3) Duodenal ulcer: (4) Erosive gastritis: Continue Pantoprazole 40 mg by mouth twice daily for 6 weeks, then decrease to once daily thereafter. Add Carafate 1 g by mouth AC and HS for 10 days Followup in our office in 6 weeks. Gastric biopsies pending to evaluate for H. pylori. If positive, will treat. Will need outpatient screening colonoscopy Admission and Anticipated Discharge Date Admission Date: May 10, 2021 Subjective Feeling much better this AM. States that he tolerated PO intake last night. He denies any overt GI bleeding overnight. He does still have mild, 2/10, non- radiating, epigastric tenderness. He denies any further complaints. Review of Systems Review of Systems: All systems reviewed & are unremarkable except as noted in HPI & below Physical Exam Constitutional: WD/WN, vitals as above Respiratory: normal respiratory effort, lungs clear to auscultation Cardiovascular: RRR, no murmur, no edema Gastrointestinal (Abdomen): Inspection/Auscultation: abdomen normal to inspect ion and normal bowel sounds; abdomen not distended Percussion/Palpation: + abdomen tender and abdomen soft Skin: no rashes, warm and dry Psychiatric: A+Ox3, euthymic affect Results & Data Results & Data ([facility]) Vital Signs (Past 12 Hours) Vital Signs Temp Pulse Pulse Resp BP Pulse Ox 05/11/21 07:27 36.7 C 79 18 130/73 96 05/10/21 22:53 37.0 C 83 16 108/63 94 PG Care Time/CCT Total # of Minutes Spent Total Time Spent with Patient: Total time spent is greater than 50% in coordination of care (as documented) at patient's floor/unit and/or counseling patient: Coding Level of Care Code 57594 Subseq Hosp Care Lvl 3 Diagnoses Abdominal pain R10.9 Abdominal location: unspecified location Symptomatic anemia D64.9 Duodenal ulcer K26.9 Erosive gastritis K29.60 (1) Abdominal pain Abdominal location: unspecified location Qualified Code(s): R10.9 - Unspecified abdominal pain
[2021-05-11] MEDS: PANTOprazole 40 MG TAB PO SCH (08:49)
--- NOTE | 2021-05-11 20:17 | Discharge Summary ---
Date of Service May 11, 2021 Admission HPI Per Admitting Provider The patient is a 51-year-old male with a reported past medical history including gastric ulcers, who presents as above. He denies any recent NSAID use, but has used ibuprofen or naproxen in the past for generalized pains. He has felt lightheaded and dizzy intermittently, worsening over the past few days. He denies taking any herbal remedies. He has been taking Percocet for a recent dental infection, and had the addition of clarithromycin recently as well. He denies use of any other [id number]-eoj-qfnyuon agents. The only reason he presented to the ED tonight, was at the insistence of his significant other, whom whom he notified of his symptoms recently Principal Diagnosis Upper GI bleed, acute blood loss anemiarelated to gastritis and duodenal ulcer Discharge Exam General he is awake and alert pleasant no distress. HEENT normocephalic atraumatic mucous membranes moist. Breathing unlabored no accessory muscle use good effort. Skin shows no rashes no pallor or icterus. Discharge Data Allergies Allergy/AdvReac Type Severity Reaction Status Date / Time aspirin Allergy Intermediate Throat Unverified 05/09/21 20:14 Swells amoxicillin AdvReac Intermediate Severe GI Unverified 05/09/21 20:14 Upset and Stomach Cramps azithromycin AdvReac Intermediate Severe GI Unverified 05/09/21 20:20 Upset Penicillins AdvReac Intermediate Severe GI Unverified 05/09/21 20:14 Upset and Stomach Cramps Consultations 05/09/21 22:46 ED Decision to Admit Stat 05/10/21 00:10 Consult Gastroenterology Routine Procedures Performed Operation Date: 05/10/21 12:00 Actual Procedures p Esophagogastroduodenoscopy - Cullen Elder Case, DO Ordered Studies 05/09/21 19:18 CT abd pelvis IV con only Urgent Hospital Course (1) Acute upper gastrointestinal bleeding: Appearing to be from gastritis and duodenal ulcer. Off NSAIDs, on PPI. Tolerating regular diet, stable for home. He was still having a moderate amount of painand given that Tylenol was not doing enough, and NSAIDs obviously would be contraindicated, I had sent a very limited prescription for oxycodone as needed severe/breakthrough painthis was promptly rejected by the pharmacyon review later it was noted that he had just gotten 30 Percocet filled probably the day prior to admissionrevisiting with patient he did note that he had some of those left, and I appreciate the insight/vigilance of the system for catching this. (2) Symptomatic anemia: Fortunately bleeding has stopped. He did have a moderate degree of acute blood loss anemiato this respect we want him to have outpatient CBC this coming week, and I wrote a note to have him off of work for a week to give his body t ramonita to adapt/time for his bone marrow to increase production of red cellsespecially given that he works a fairly physical job. Total Time Total Time Spent Total Time Spent (In Minutes): <30 Discharge Plan Discharge Items Patient Disposition: Home - Self-Care Reason For Visit: GI BLEED, SYMPTOMATIC ANEMIA Discharge Diagnosis: GI bleed, blood loss related anemia - all related to gastritis and duodenal ulcer Activity: Resume your previous activity Non-emergency contact: Primary Care Provider and Computer Teacher Call non-emergency contact if: you have any medication questions and your symptoms worsen Follow-up/Referrals: PCP,NO [Primary Care Provider] - Diet: Regular Addtl Attending Provider Instructions: gastritis and duodenal ulcer -your scope showed that gastritis (think of it like a "brush burn" of the lining of the stomach) and a duodenal ulcer (ulcer at the first part of your small intestine - right where the stomach empties out) - were the culprits for your GI bleeding -we'll have you on protonix (pantoprazole) 40mg twice a day for about 6 weeks, then once a day for a while thereafter, to help this heal over. for now, work off the assumption that this will be the timeline -- if you get better way faster, maybe we can reduce/stop the medication sooner. however, while you'll need to be on it for a while, we don't have intention of having you on it forever (i mention that only because statistically, once someone is put on a stomach medicine like this for a specific reason like gastritis and an ulcer, it is one of the most common medications to "accidentally" be continued indefinitely -- so if you're still on it by [place], definitely be asking if it's something that is still truly needed) -totally and completely avoid anti-inflammatories (ibuprofen, motrin, advil, alleve, naproxen, etc) as those are the most common culprit for causing gastri tis and ulcers. alcohol is also a pretty common culprit, so we'd recommend that you avoid alcohol for the foreseeable future as well -Dr Santiago (and your new PCP once you establish) will be following how you're feeling / looking at how it appears you're healing and guiding you from there. -pain control for a situation like this is a little tricky since anti- inflammatories will actually make the ulcers worse. because of that, we're sort of left with tylenol or narcotics, with very little in between. fortunately, over the next few days, you're should be healing fairly rapidly, so "bad" pain is likely to be fairly short lived -for pain: first line try 500mg of tylenol (acetaminophen) -- you can take it up to every six hours as needed, but to protect your liver, keep it under 2000mg on the day. if the tylenol isn't working well enough, for a few days we can also augment the pain relief with oxycodone 5mg -- and that you can take every 6 hours as needed as well. the problem with the narcotics like oxycodone is that they have a lot of possible side effects: sedation (so don't drive if you have to take it), constipation (so if you're needing it at all regularly pre- emptively start a stool softener), and physical dependency (we should be short enough on the prescription that this is unlikely - but sometimes it happens quickly so just only use it if you really need it) anemia -while the bleeding has stopped, you did lose a decent amount of blood -- your blood counts are low enough that you might feel more easily fatigued, and with any kind of heavy exertion it wouldn't be surprising if you felt weak/lightheaded/woozy -your bone marrow will start cranking out new red blood cells - so it likely will only take a few weeks until your numbers are back to normal. i would recommend that you have labwork (complete blood counts, CBC) checked in the office this week (wherever you establish care) - to ensure things are starting to head in the right direction - and then they should follow up the same labs in another week or so to trend your counts back to totally normal. -because you work a pretty physical job, we have a work note having you off work for this week - OK to return 05/19. if you're still feeling way more weak/lightheaded/dizzy/etc by the end of the week, the PCP you establish with could write a new note extending the time off if it's needed, although it's not likely to be -to be thorough, and because you're close to 52 for screening age anyway, dr santiago will be checking a colonoscopy in a few weeks or so just to be sure that there isn't anything else going on (like polyps) that could be oozing blood Visit Report Forms: Tylenol Use Stand-Alone Forms: [facility] [employer], Opioid Pain Management, Work/School Release, Smoking Cessation Medications and DC Order Prescriptions: New pantoprazole 40 mg Tablet,Delayed Release (Dr/Ec) 40 mg PO BID Qty: 60 RF: 0 sucralfate [Carafate] 100 mg/mL suspension 1 g PO ACHS 14 Days Qty: 140 RF: 0 acetaminophen 500 mg capsule 500 mg PO Q6H PRN (Reason: fever) Qty: 30 RF: 0 oxycodone 5 mg capsule 5 mg PO Q6H PRN (Reason: pain) Qty: 7 RF: 0 Discontinued oxycodone-acetaminophen 5-325 mg tablet 1 tab PO Q6H PRN (Reason: Pain) RF: 0 Discharge Orders: Discharge Order (Routine); Ordered 05/11/21 Ordered By: Elías Hobson/Other Patient Handouts: Treating Gastritis, Understanding Gastritis, Anatomy of the Digestive System, ED Gastritis (Adult), ED PEPTIC ULCER vs GASTRITIS Admission Data Admit Date/Time: 05/10/21 00:03 Attending Provider: Elías Garcia Admit Provider: Elver Reagan Primary Care Provider: PCP,NO Other Providers: Elver Reagan ; Cullen Santiago Other Interventions: Discharge Summary Assessment (RN) Last Done: 05/11/21 12:45 Coding Level of Care Code D/C Day Management <30 mins Diagnoses Acute upper gastrointestinal bleeding K92.2 Symptomatic anemia D64.9
== END 2021-05-11 13:15 | disposition home or self-care (01) | DRG 378 ==
LOC: ED 18:39 → 2S 05-10 00:03 → SUATTDRO 05-10 00:03 → 2S 05-10 01:14 → 3N 05-10 16:11